=== PATIENT | female | born 1990 | race Caucasian/White ===

== ENCOUNTER 2023-09-26 09:56 | Outpatient (REF) | payer MEDICAID, SELFPAY ==
[2023-09-28 14:08] LABS: C. trachomatis RNA TMA NOT DETECTED (NOT DETECTED); N. gonorrhoeae RNA TMA NOT DETECTED (NOT DETECTED)
== END 2023-09-26 09:57 | disposition home or self-care (01) ==
LOC: HO.HHCL 09:56
PROVIDERS: Visit Provider Internal Medicine
DX: N92.1 Excessive and frequent menstruation with irregular cycle (principal); E03.9 Hypothyroidism, unspecified; Z97.5 Presence of (intrauterine) contraceptive device
CPT/HCPCS: 36415; 81513; 84443; 87491; 87591